=== PATIENT | male | born 1960 ===

== ENCOUNTER 2019-11-11 01:31 | Emergency (ER) | payer SELFPAY ==
[2019-11-11] MEDS ORDERED: propofoL 100 ML IV SCH (01:35)
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
[2019-11-11 01:56] LABS: BLOOD UREA NITROGEN,BUN 5 mg/dL (7.0-18.0); CARBON DIOXIDE,CO2 23.3 mmol/L (21.0-32.0); CHLORIDE,CL 97 mmol/L (98-107); GLUCOSE RANDOM 163 mg/dL (74-106); SODIUM,NA 137 mmol/L (136-148)
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
--- NOTE | 2019-11-11 02:15 | CR ---
Indication: Intubation Technique: Chest 1 view Comparison: None Findings/Impression: Endotracheal tube tip terminates 6.5 cm above the level of the glory. Normal cardiomediastinal silhouette. Lungs are clear. No pneumothorax or effusion. Moderate gaseous distention of the stomach. No acute osseous abnormality. Dictated by Radha Morales MD @ Nov 11 2019 3:12AM Signed by Dr. Radha Morales @ Nov 11 2019 3:13AM
--- NOTE | 2019-11-11 02:51 | CT ---
INDICATION: Fall TECHNIQUE: Head CT without contrast. COMPARISON: None FINDINGS/IMPRESSION: 1. Acute left frontal subdural hematoma measuring 5 mm in thickness. Acute right convexity subdural hematoma measuring 5 mm in thickness. Small amount of bilateral subarachnoid hemorrhage. Small contusions in the inferior left frontal lobe and anterior aspects both temporal lobes. Small amount of blood along the falx. No midline shift. 2. Normal ventricular size. No transtentorial herniation. Right posterolateral scalp contusion. There is an underline, minimally displaced skull fracture, best seen on image numbers 26 through 55 series 203. Patchy ethmoid opacification. 3. Findings discussed with Dr. Mccullough at 3:48 a.m. on November 11, 2019. Please note that all CT scans at this facility use dose modulation, iterative reconstruction, and/or weight-based dosing when appropriate to reduce radiation dose to as low as reasonably achievable. Dictated by Radha Morales MD @ Nov 11 2019 3:43AM (Electronically Signed)
--- NOTE | 2019-11-11 02:51 | CT ---
INDICATION: Fall TECHNIQUE: CT cervical spine without contrast. COMPARISON: None FINDINGS: Vertebral alignment: Alignment is normal. Vertebrae: There are no fractures or suspicious bony lesions. Discs and facet joints: There are mild multilevel degenerative disc and facet changes. Extraspinal findings: Paraspinous soft tissues are unremarkable. IMPRESSION: 1. No sign of acute injury. 2. Multilevel degenerative spondylosis. Please note that all CT scans at this facility use dose modulation, iterative reconstruction, and/or weight-based dosing when appropriate to reduce radiation dose to as low as reasonably achievable. Dictated by Radha Morales MD @ Nov 11 2019 3:43AM Signed by Dr. Radha Morales @ Nov 11 2019 3:48AM
[2019-11-11] MEDS ORDERED: Etomidate 2 MG/ML 20 ML SDV IVPUSH ONE (03:00)
[2019-11-11] MEDS ORDERED: Sodium Chloride 0.9% 1,000 ML IV ONE (03:00)
[2019-11-11] MEDS ORDERED: Mannitol 12.5 GM/50 ML SDV IV ONE (03:32)
[2019-11-11] MEDS ORDERED: Sodium Chloride 0.9% 2.5 ML Syringe FLUSH PRN (04:49)
[2019-11-11] MEDS ORDERED: Sodium Chloride 0.9% 10 ML Syringe FLUSH PRN (04:49)
== END 2019-11-11 04:00 ==
LOC: MW.ED 01:31
DX: S06.5X9A Traumatic subdural hemorrhage with loss of consciousness of unspecified duration, initial encounter (principal); F10.129 Alcohol abuse with intoxication, unspecified; Y90.8 Blood alcohol level of 240 mg/100 ml or more; W20.8XXA Other cause of strike by thrown, projected or falling object, initial encounter; Y92.89 Other specified places as the place of occurrence of the external cause
CPT/HCPCS: 36415; 70450; 71045; 72125; 80053; 80305; 80307; 81003; 85025; 99291; J1953; J2150; J2704; J3490; J7060